=== PATIENT | male | born 1960 | race African-American/Black ===

== ENCOUNTER 2021-07-29 15:31 | Emergency (ER) | payer OTHER, SELFPAY ==
[2021-07-29 15:54] VITALS: BP 83/52; BP 90/50; PULSE 58; RESP 18; TEMP 36.4; O2SAT 98; BMI 33.1
--- NOTE | 2021-07-29 16:20 | ED_ITS ---
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 No nausea no vomiting no diarrhea no black stool no chest pain or palpitation no fever or chills Related Data Allergies Allergy/AdvReac Type Severity Reaction Status Date / Time No Known Allergies Allergy Verified 07/29/21 16:30 Review of Systems Review of Systems: Yes all other systems are reviewed and are negative PMFSH Past Medical History Medical History HLD (hyperlipidemia) HTN (hypertension) Social History Social History Alcohol intake: never Patient Tobacco Use Status: Never used Tobacco Use of substances other than those prescribed or required for medical reasons: No Advance Directives: No Advance Directives Information Provided: No Physical Exam Vital Signs: Vital Signs: Last Vital Signs Temp 97.6 F 07/29/21 15:54 Pulse 58 07/29/21 15:54 Resp 18 07/29/21 15:54 BP 90/50 L 07/29/21 15:54 Pulse Ox 98 07/29/21 18:59 Body Mass Index 33.1 Appearance: Alert. Oriented X3. No acute distress. Eyes: PERRLA, No Nystagmus ENT: Pharynx normal. Oral Mucosa moist Neck: Normal inspection. Neck supple. CVS: Normal heart rate and rhythm. Pulses normal. Respiratory: No respiratory distress. Equal air entry bilateral, no wheezing/rales/rhonchi Abdomen: Soft and nontender. Bowel sounds are present, no mass palpable, no CVA tenderness Skin: Skin warm and dry. Normal skin color. Normal skin turgor. Extremities: No lower extremity edema. No calf tenderness Neuro: Oriented X 3. No motor deficit. No sensory deficit.No cerebellar signs , cranial nerves II-XII intact MDM - Syncope MDM Narrative Medical decision making narrative: Patient on heavy dose of lisinopril 30 mg and chlorthalidone for hypertension blood pressure on the lower side patient not drinking enough fluids after IV hydration patient start feeling better no orthostatic hypotension at this time patient advised to stop the lisinopril and chlorthalidone followed by director medic[employer] sales Lab Data Attestation: I reviewed the patient's lab results. Result diagrams: 07/29/21 17:38 07/29/21 17:38 Labs: Lab Results 07/29/21 07/29/21 07/29/21 Range/Units 17:38 17:38 17:38 WBC 10.1 (4.8-10.8) X10*3/uL RBC 5.02 (4.60-5.80) X10*6/uL Hgb 15.0 (14.0-18.0) g/dl Hct 44.5 (42.0-52.0) % MCV 88.6 (80.0-98.0) fL MCH 29.9 (27.0-33.0) pg MCHC 33.7 (31.0-36.0) g/dl RDW 12.4 (11.0-16.0) % Plt Count 165 (160-400) X10*3/uL MPV 10.9 (9.4-12.4) fL Immature Gran % (Auto) 0.4 (0.0-0.4) % Neut % (Auto) 75.7 H (45-73) % Lymph % (Auto) 16.9 L (20-40) % [place] % (Auto) 5.2 (2-11) % Eos % (Auto) 1.5 (0-4) % Baso % (Auto) 0.3 (0-2) % Lymph # (Auto) 1.7 (1.2-4.9) X10*3/uL [place] # (Auto) 0.5 (0.1-1.2) X10*3/uL Eos # (Auto) 0.2 (0.0-0.4) X10*3/uL Baso # (Auto) 0.0 (0.0-0.2) X10*3/uL Abs Immat Gran (auto) 0.04 H (0.00-0.03) X10*3/uL Absolute Neuts (auto) 7.6 (2.0-8.3) x10*3/uL Absolute Nucleated RBC 0.000 (0.0-0.012) X10*3/uL Nucleated RBC % (auto) 0.0 (0.0-0.2) /100WBC Sodium 141 (135-145) mmol/L Potassium 4.0 (3.3-5.1) mmol/L Chloride 104 (96-108) mmol/L Carbon Dioxide 32 H (22-29) mmol/L Anion Gap 9 L (12-20) BUN 15 (9-16) mg/dL Creatinine 1.51 H (0.5-1.4) mg/dL Estim Creat Clear Calc 74.5 Estimated GFR 48 Random Glucose 108 (60-115) mg/dL Calcium 9.9 (8.4-10.2) mg/dL Troponin I High Sens 3.8 (<3.5-35.0) ng/L Discharge Plan Discharge Clinical Impression: Syncope due to orthostatic hypotension Patient Disposition: Home, Self-Care Instructions: Syncope (ED), Hypotension (ED) Additional Instructions: Hold your lisinopril and chlorthalidone for now Drink plenty of fluids Check blood pressure daily if it is higher than 140/90 then only need the medication and may be at lower dose than what you taking now See your director medic[employer] sales
--- NOTE | 2021-07-29 16:31 | ECG_ITS ---
Test Reason : syncope Blood Pressure : / mmHG Vent. Rate : 065 BPM Atrial Rate : 065 BPM P-R Int : 146 ms QRS Dur : 108 ms QT Int : 452 ms P-R-T Axes : 058 -38 006 degrees QTc Int : 470 ms Normal sinus rhythm Left anterior fascicular block Abnormal ECG No previous ECGs available Referred By: Brent Lugo Electronically Signed By:KELSEY MESA MD
[2021-07-29 17:43] LABS: MANUAL DIFF FLAG NO
[2021-07-29] MEDS: 0.9 % Sodium Chloride 1,000 ML 999 ML IVCONT (17:48)
[2021-07-29 17:49] LABS: Basophils Percent Auto 0.3 % (0-2); Eosinophils Absolute Auto 0.2 X10*3/uL (0.0-0.4); Eosinophils Percent Auto 1.5 % (0-4); Hematocrit 44.5 % (42.0-52.0); Imm Gran Abs Auto 0.04 X10*3/uL (0.00-0.03); Imm Gran Pct Auto 0.4 % (0.0-0.4); Lymphocytes Absolute Auto 1.7 X10*3/uL (1.2-4.9); Lymphocytes Percent Auto 16.9 % (20-40); Mean Corpuscular HGB Conc 33.7 g/dl (31.0-36.0); Mean Corpuscular Hemoglobin 29.9 pg (27.0-33.0); Mean Corpuscular Volume 88.6 fL (80.0-98.0); Mean Platelet Volume 10.9 fL (9.4-12.4); Monocytes Absolute Auto 0.5 X10*3/uL (0.1-1.2); Monocytes Percent Auto 5.2 % (2-11); Neutrophils Absolute Auto 7.6 x10*3/uL (2.0-8.3); Neutrophils Percent Auto 75.7 % (45-73); Platelet Count 165 X10*3/uL (160-400); Red Blood Count 5.02 X10*6/uL (4.60-5.80); Red Cell Distribution Width 12.4 % (11.0-16.0); White Blood Count 10.1 X10*3/uL (4.8-10.8)
[2021-07-29 18:04] LABS: Anion Gap 9 (12-20); Blood Urea Nitrogen 15 mg/dL (9-16); Calcium 9.9 mg/dL (8.4-10.2); Carbon Dioxide 32 mmol/L (22-29); Chloride 104 mmol/L (96-108); Creatinine Clr Calc Pharmacy 74.5; Estimated Glomerular Filt Rate 48; Glucose Random 108 mg/dL (60-115); Sodium 141 mmol/L (135-145)
[2021-07-29 18:05] LABS: Troponin-I High Sensitivity 3.8 ng/L (<3.5-35.0)
[2021-07-29 18:59] VITALS: O2SAT 98
== END 2021-07-29 19:40 | disposition home or self-care (01) ==
PROVIDERS: Emergency Provider Internal Medicine
DX: R55 Syncope and collapse (principal); Z79.899 Other long term (current) drug therapy
CPT/HCPCS: 36415; 80048; 84484; 85025; 93005; 96360; 99284; 99285